=== PATIENT | female | born 1955 | race Caucasian/White ===

== ENCOUNTER 2017-09-09 05:39 | Day surgery (SDC) | payer OTHER ==
[~2017-09-09 05:39] MED LIST: FLECAINIDE ACET50 MG PO; SYNTHROID50 MCG PO; TOPROL XL25 MG PO
[2017-09-09] MEDS ORDERED: Septra Ds Tablet PO (10:22)
[2017-09-09] MEDS ORDERED: TRAM1TAB98 PO (10:22)
== END 2017-09-09 16:30 | disposition home or self-care (01) ==
LOC: CIR.AMB 05:39
DX: M23.322 Other meniscus derangements, posterior horn of medial meniscus, left knee (principal); M23.352 Other meniscus derangements, posterior horn of lateral meniscus, left knee; M17.12 Unilateral primary osteoarthritis, left knee

== ENCOUNTER 2018-09-24 10:09 | Emergency (ER) | payer OTHER ==
[~2018-09-24] VITALS: Ht 170.2 cm; Wt 88.5 kg
[~2018-09-24 10:09] MED LIST changes: +Septra Ds Tablet PO; +TRAM1TAB98 PO
[2018-09-24] MEDS ORDERED: MONTELUKAST SODI5 MG PO (10:45)
[2018-09-24] MEDS ORDERED: PEPCID20 MG PO (10:46)
[2018-09-24] MEDS ORDERED: LEVOXYL50 MCG PO (10:47)
== END 2018-09-24 15:41 | disposition home or self-care (01) ==
LOC: ER 10:09
DX: S13.4XXA Sprain of ligaments of cervical spine, initial encounter (principal); V49.9XXA Car occupant (driver) (passenger) injured in unspecified traffic accident, initial encounter; Y93.89 Activity, other specified; Y92.488 Other paved roadways as the place of occurrence of the external cause; Y99.8 Other external cause status